=== PATIENT | male | born 1945 | race Caucasian/White ===

== ENCOUNTER 2020-05-08 01:13 | Outpatient (CLI) | payer MEDICARE, OTHER | END 2020-05-08 01:14 | disposition short-term general hospital (02) | LOC: EMS 01:13 | DX: M54.9 Dorsalgia, unspecified (principal); R20.0 Anesthesia of skin | CPT/HCPCS: A0425; A0429 ==

== ENCOUNTER 2021-01-05 14:18 | Outpatient (CLI) | payer MEDICARE, OTHER ==
--- NOTE | 2021-01-05 22:00 | SLEEP CARE CONSULTATION ---
Information from patient questionnaire entered by Ritu Lynn MA. I have reviewed and concur with the information entered by Ritu Lynn MA. This document represents the service I personally performed and the decisions made by me, Jeanne Nava MD, [facility]. History of Present Illness Service Date and Time: 01/05/2021 1418 Previous diagnosis: Severe, Obstructive Sleep Apnea-Hypopnea Syndrome AHI: 58 (in 2014) Reason for follow up: other (9 month f/u ) Equipment type: CPAP Equipment obtained from: [employer] Mask style: Nasal Prior sleep studies: Yes Year and Where: 2014 - in [facility] additional information: Mr. Delgado returned today for follow up of nasal CPAP therapy. He was diagnosed to have severe obstructive sleep apnea-hypopnea syndrome. The patient wears a nasal mask. He reports using the device nightly and all through the night. The compliance report shows usage in 143 nights out of the past 180 nights, averaging 6.5 hours a night. The > 4 hour compliance rate for the past 180 days is 75%. He complained of no particular problem with the device such as soreness on the face, dry nose, epistaxis, nasal congestion or headache. He thinks that the pressure of 11 - 15 cmH2O is comfortable. On the CPAP therapy he notices improvement in his sleep quality, and that he wakes up feeling fresher in the morning and more awake/alert during the day. [place] Sleepiness Scale score is 4. His notices no snore at all. The average residual AHI is 1.3; and average time in large leak per day is 9 minutes. The 90th percentile pressure is 12 cmH2O. The patient is aware of the [employer] recall and is now using his traveling Transcend Z1 device. He would like to buy a new Z2. Sleep Study - Results Prior sleep studies: Yes Year and Where: 2014 - in [place], [place] Subjective Initial [place] Sleepiness Scale score: 10 (in 2018) Current [place] Sleepiness Scale score: 4 (in 2020) Allergies and Home Medications Drug allergies reviewed: Yes Home medication list reviewed: Yes Review of Systems Review of systems same as previous: Yes Physical Exam Vital signs obtained and entered by: PANCHO Vega Blood Pressure: 132/70 (left) Cuff size: wrist Heart Rate: 64 O2 Saturation: 96 (with mask) Height: 6 ft Weight: 286 lb (with coat) Body Mass Index: 38.7 BMI Classification: Obese Impression and Plan IMPRESSION: 1. Obstructive Sleep Apnea-Hypopnea Syndrome, severe, with the patient doing well on nasal CPAP therapy. He has excellent compliance and significant clinical improvement. The current pressure appears effective and comfortable. His mask fits well. Overall, he is very satisfied with treatment and plans to continue with it long-term. I will send a prescription to [facility] for a new traveling CPAP. PLAN: 1. Continue with autoCPAP set at 11 - 15 cmH2O. 2. Prescription made for [employer] Z2 set at the pressure. 3. Try to lose weight. 3. 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
[2021-01-05 22:01] VITALS: BP 132/70
== END 2021-01-05 14:19 | disposition home or self-care (01) ==
LOC: SC 14:18
PROVIDERS: ATTEND Internal Medicine Pulmonary Disease
DX: G47.33 Obstructive sleep apnea (adult) (pediatric) (principal); E66.9 Obesity, unspecified; Z68.38 Body mass index [BMI] 38.0-38.9, adult
CPT/HCPCS: 99212; G0463

== ENCOUNTER 2022-01-09 10:15 | Outpatient (CLI) | payer MEDICARE, OTHER | END 2022-01-09 10:16 | disposition home or self-care (01) | LOC: LAB.N 10:15 | PROVIDERS: ATTEND Internal Medicine Cardiovascular Disease | DX: Z01.812 Encounter for preprocedural laboratory examination (principal); I48.3 Typical atrial flutter; Z20.822 Contact with and (suspected) exposure to COVID-19 ==

== ENCOUNTER 2022-01-18 10:00 | Outpatient (CLI) | payer MEDICARE, OTHER ==
--- NOTE | 2022-01-18 19:00 | SLEEP CARE CONSULTATION ---
Information from patient questionnaire entered by Tete Meek. I have reviewed and concur with the information entered by Tete Meek. This document represents the service I personally performed and the decisions made by me, Jeanne Nava MD, [facility]. History of Present Illness Service Date and Time: 01/18/2022 1000 Previous diagnosis: Severe, Obstructive Sleep Apnea-Hypopnea Syndrome AHI: 58 (in 2014) Reason for follow up: annual (LAST SEEN ) Equipment type: CPAP (DREAMSTATION) Equipment obtained from: [employer] Mask style: Nasal Prior sleep studies: Yes Year and Where: 2014 - in [facility] additional information: Mr. Delgado returned today for an annual follow up of nasal CPAP therapy. He was diagnosed to have severe obstructive sleep apnea-hypopnea syndrome. The patient wears a nasal mask. He reports using the device nightly and all through the night. The compliance report shows usage in 24 nights out of the past 30 nights, averaging 7.5 hours a night. For unclear reason, the device did not register any usage prior to 12/17/21. He complained of no particular problem with the device such as soreness on the face, dry nose, epistaxis, nasal congestion or headache. He thinks that the pressure of 11 - 15 cmH2O is comfortable. On the CPAP therapy he notices improvement in his sleep quality, and that he wakes up feeling fresher in the morning and more awake/alert during the day. [place] Sleepiness Scale score is 9. His notices no snore at all. The average residual AHI is 0.9; and average time in large leak per day is 5.7 minutes. The 90th percentile pressure is 11.5 cmH2O. The patient is aware of the [employer] recall and is now using his traveling Transcend Z2 device. He has not received a replacement machine from [employer] yet. Sleep Study - Results Prior sleep studies: Yes Year and Where: 2014 - in [place], [place] Subjective Initial [place] Sleepiness Scale score: 10 (in 2018) Current [place] Sleepiness Scale score: 9 (01/18/22) Allergies and Home Medications Drug allergies reviewed: Yes Home medication list reviewed: Yes Review of Systems Review of systems same as previous: Yes Physical Exam Vital signs obtained and entered by: TETE Johnson MA Blood Pressure: 110/60 (LEFT ARM) Cuff size: long Heart Rate: 84 O2 Saturation: 98 Height: 6 ft Weight: 295 lb 9.6 oz Body Mass Index: 40.1 BMI Classification: Morbidly Obese Impression and Plan IMPRESSION: 1. Obstructive Sleep Apnea-Hypopnea Syndrome, severe, with the patient doing well on nasal CPAP therapy. He has excellent compliance and significant clinical improvement. The current pressure appears effective and comfortable. His mask fits well. Overall, he is very satisfied with treatment and plans to continue with it long-term. 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 PLAN: 1. Continue with autoCPAP set at 11 - 15 cmH2O. 2. Try to lose weight. 3. Return for follow up in a year or earlier if there is any problem. Counseling Topics: Weight control Follow up with Sleep Care in: 1 year Visit Type: In Office Time Spent with Patient (minutes): 15 Provider Statement: I spent 100% of the Face to Face Visit with the patient with greater than 50% spent counseling the patient and coordination of care.
[2022-01-18 19:01] VITALS: BP 110/60
== END 2022-01-18 10:01 | disposition home or self-care (01) ==
LOC: SC 10:00
PROVIDERS: ATTEND Internal Medicine Pulmonary Disease
DX: G47.33 Obstructive sleep apnea (adult) (pediatric) (principal); E66.01 Morbid (severe) obesity due to excess calories; Z68.41 Body mass index [BMI] 40.0-44.9, adult
CPT/HCPCS: 99212; G0463

== ENCOUNTER 2023-05-18 08:27 | Outpatient (CLI) | payer MEDICARE, OTHER ==
--- NOTE | 2023-05-18 08:54 | Sleep Patient Instructions ---
Sleep Center Visit Summary - Patient Visit Information Reason for Visit: Annual Follow up - Patient Instructions Additional Instructions: You will be completing a sleep study, either an in-lab polysomnography (PSG) or home sleep study (HST). You will follow-up in the sleep care office after the sleep study is completed to hear the results and talk about therapy, if needed. You will be called by our office staff to schedule this appointment, but you may contact us with any questions. - Clinic Information Contact: [facility] [address] [place] [address] [email or web address] T: [phone]
[2023-05-18 08:59] VITALS: BP 133/50; O2SAT 98
--- NOTE | 2023-05-18 08:59 | SLEEP CARE CONSULTATION ---
Information from patient questionnaire entered by Tete Meek. I have reviewed and concur with the information entered by Tete Meek. This document represents the service I personally performed and the decisions made by me, Johnna Ordaz ARNP. History of Present Illness Service Date and Time: 05/18/2023826 Previous diagnosis: Severe, Obstructive Sleep Apnea-Hypopnea Syndrome AHI: 58 (in 2014) Reason for follow up: annual (LAST SEEN 01/2022) Equipment type: CPAP (DREAMSTATION, recertified; NEED MACHINE) Equipment obtained from: [employer] Mask style: Nasal Prior sleep studies: Yes Year and Where: 2014 - in [place], [place] HPI additional information: LANNY DALE was diagnosed to have severe, AHI 58, obstructive sleep apnea-hypopnea syndrome and returned today for CPAP therapy annual follow-up. Sleep Study - Results Prior sleep studies: Yes Year and Where: 2014 - in [place], [place] CPAP Compliance Data - Data Reviewed with Patient Compliance rate %: 0 (no data in last year) Current pressure setting (cmH2O): 11-15 Compliance data discussion: He says he has not been using his CPAP (re-certified Dreamstation) because he had colon cancer surgery and lost about 50 pounds. He stopped snoring, too. He has not used the CPAP for a year. He also has a travel CPAP. He has not been using it either. Subjective Missed days of use due to: reports: other (not using because he lost weight and stopped snoring) Patient concerns: denies: aerophagia, mask discomfort, air blowing in eyes, mask leak noise, condensation in mask/hose, nasal congestion, dry mouth, nose, throat, epistaxis Current pressure setting perceived as: comfortable On therapy, patient: reports: sleeping better, awakening more refreshed, being more awake and alert during the day, more rested overall. denies: drowsiness while driving Initial [place] Sleepiness Scale score: 10 (in 2019) Current [place] Sleepiness Scale score: 2 (05/18/23) Allergies and Home Medications Known drug allergies: No Drug allergies reviewed: Yes Home medication list reviewed: Yes (no changes) Review of Systems Review of systems same as previous: No (LOST 50+LBS) Physical Exam Vital signs obtained and entered by: TETE Johnson MA Blood Pressure: 133/50 (LEFT ARM) Cuff size: regular Heart Rate: 43 O2 Saturation: 98 Height: 6 ft Weight: 249 lb 12.8 oz Weight change since last visit: 46 lb loss Body Mass Index: 33.8 BMI Classification: Obese Impression and Plan 1. Obstructive Sleep Apnea-Hypopnea Syndrome, severe, with poor treatment compliance and unknown apnea control. He has not used his CPAP in a year because he lost about 50 pounds and stopped snoring. He says he sleeps well and feels rested without using the CPAP. I recommend proceeding to polysomnography to confirm the diagnosis and to assess severity. I obtained agreement to proceed. Patient's apnea severity and rationale for treatment to reduce apnea, improve sleep quality and reduce cardiovascular and cerebrovascular events was reviewed. I also reviewed the benefit of consistent device use of CPAP for hypertension, cardiac disease (CHD). 2. Obesity, unspecified. Currently patients BMI is 33.8. He has lost about 50 pounds since last year. Obesity increases the risk of apnea, CPAP pressure requirements and overall health risks especially cardiovascular and diabetes. Thus patient is advised to continue to try to lose weight. * Schedule polysomnography to re-verify diagnosis and severity. * Avoid long distance driving or driving when feeling sleepy. * Avoid alcohol, sedative and muscle relaxant around bedtime. * Attempt to lose weight. * Review instructions provided by trained office staff on how to prepare for the sleep study. * Return for follow-up after sleep study completed. Continue with device pressure at (cmH2O): 11-15 Counseling Topics: Weight loss health impact Follow up with Sleep Care in: other (for sleep study results review) Visit Type: In Office Time Spent with Patient (minutes): 20 Provider Statement: I spent 100% of the Face to Face Visit with the patient with greater than 50% spent counseling the patient and coordination of care.
== END 2023-05-18 08:28 | disposition home or self-care (01) ==
LOC: SC 08:27
PROVIDERS: ATTEND Nurse Practitioner Family
DX: G47.33 Obstructive sleep apnea (adult) (pediatric) (principal); E66.9 Obesity, unspecified; Z68.33 Body mass index [BMI] 33.0-33.9, adult
CPT/HCPCS: 99213; G0463; 99212

== ENCOUNTER 2023-06-07 19:09 | Outpatient (CLI) | payer MEDICARE, OTHER | END 2023-06-07 19:10 | disposition home or self-care (01) | LOC: SC 19:09 | PROVIDERS: ATTEND Nurse Practitioner Family | DX: G47.33 Obstructive sleep apnea (adult) (pediatric) (principal); G47.61 Periodic limb movement disorder | CPT/HCPCS: 95810 ==

== ENCOUNTER 2023-07-01 10:51 | Outpatient (CLI) | payer MEDICARE, OTHER ==
--- NOTE | 2023-07-01 11:23 | Sleep Patient Instructions ---
Sleep Center Visit Summary - Patient Visit Information Reason for Visit: Sleep study follow-up - Patient Instructions Additional Instructions: You were here for follow up of verifying sleep study which showed you have moderate obstructive sleep apnea and should continue with CPAP therapy. You will be continued on CPAP therapy with pressure at 11-15 cmH2O. Please let us know if the pressure change is uncomfortable and we can make adjustments of the pressure. You should follow up with sleep care in 1-2 months. You may contact us sooner for any questions or concerns. - Clinic Information Contact: [facility] [address] [place] [id number] [email or web address] T: [phone]
--- NOTE | 2023-07-01 11:29 | SLEEP CARE CONSULTATION ---
Information from patient questionnaire entered by Darcy Meek. I have reviewed and concur with the information entered by Darcy Meek. This document represents the service I personally performed and the decisions made by , Johnna Ordaz ARNP. History of Present Illness Service Date and Time: 07/01/2023 1051 Initial [place] Sleepiness Scale score: 10 (in 2019) Current [place] Sleepiness Scale score: 2 Additional HPI information: LANNY DALE returns for follow up and results of the recently performed polysomnography. The sleep study showed moderate obstructive sleep apnea with an average AHI of 23.5 and lenard oxygen saturation of 83%. He had severe PLMs not contributing to sleep fragmentation. I explained the pathophysiology behind obstructive sleep apnea. We then spent quite a bit of time discussing different treatment options. For mild obstructive sleep apnea, surgery and oral appliance are alternatives to nasal CPAP therapy but in moderate or severe cases, nasal CPAP is the most effective and reliable treatment. I reviewed the impact of weight changes on sleep apnea and strongly recommended losing weight. After some discussion, the patient will continue with the nasal CPAP therapy set at 11-15 cmH20. Patient does not drink alcohol. Patient was cautioned about risks of drowsy driving until sleepiness symptoms resolve. Patient denies drowsy driving. Sleep Study - Results Type of Sleep Study: Polysomnography (COMPLETED 06/07/23) Prior sleep studies: Yes Year and Where: 2014 - in [place], [place] Polysomnography/Home Sleep Study results: IMPRESSION: The quality of the study is good. The patient had minimally reduced sleep efficiency. The sleep architecture was abnormal for sleep fragmentation and lack of slow wave sleep (N3). Respiratory monitoring showed moderate obstructive sleep apnea-hypopnea (AHI = 23.5) associated with frequent arousals, oxyhemoglobin desaturation and mild hypoxia ([place] oxygen saturation of 83%). The respiratory events occurred independently of sleep stage and body position (supine AHI = 18.5; non-supine = 29.91). Snore was moderate to loud in intensity. There was severe periodic leg movement of sleep not contributing to the sleep fragmentation. Cardiac rhythm was normal sinus rhythm without significant arrhythmia. No abnormal behavior (parasomnia) observed during the night. Allergies and Home Medications Known drug allergies: No Drug allergies reviewed: Yes Home medication list reviewed: Yes (no changes) Allergy and home medication list: Allergies No Known Drug Allergies Allergy (Verified 06/29/23 11:12) Review of Systems Review of systems same as previous: Yes (no changes) Physical Exam Vital signs obtained and entered by: JOHNNA CHAKRABORTY Blood Pressure: 90/48 Cuff size: wrist (right) Heart Rate: 54 O2 Saturation: 97 Height: 6 ft Weight: 246 lb 9.6 oz Weight change since last visit: 3 lb loss Body Mass Index: 33.4 BMI Classification: Obese Impression and Plan 1. Obstructive Sleep Apnea-Hypopnea Syndrome, moderate, with lowest oxygen saturation of 83%. His sleep apnea has improved with the weight loss but he still had moderate obstructive sleep apnea. Positive pressure therapy could continue to benefit hypertension and cardiac disease (CHD). I advised the patient to continue with CPAP therapy and he agreed to restart using his machine. He says he does have some supplies but has not ordered any for a long time from [employer]. I will update his supply prescription. As mentioned above, the patient will be continued on nasal autoCPAP therapy with pressure set at 11- 15 cmH2O. Compliance guidelines also reviewed. I asked that he followup in 1-2 months. 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 He sees him in the first week of July. 2. Hypoxemia, mild, with a lenard oxygen saturation of 83% and 12.6 minutes spent under 90%. The baseline oxygen saturation was normal with an average oxygen saturation of 92%. 3. Periodic limb movement, severe, that did not fragment patients sleep. 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 Periodic limb movement of sleep (PLMS) is characterized by episodes of repetitive limb movements that occur during sleep and usually involve the lower limbs. The etiology is unknown. Sleep hygiene methods can also improve sleep as well as lifestyle changes such as regular exercise. Patient was advised that no treatment is needed at this time. If symptoms increase, then further evaluation is indicated. 4. Obesity, unspecified. Currently patients BMI is 33.4. He has lost weight. Obesity increases the risk of apnea, CPAP pressure requirements and overall health risks especially cardiovascular and diabetes. Thus patient is advised to continue to try to lose weight. * Continue auto CPAP pressure at 11-15 cmH2O * Notify me if snoring with mask or feeling that the pressure is too much or too little * Attempt to lose weight * Call this office if any problems using CPAP * Return for follow up in 1-2 months, or sooner if concerns arise Counseling Topics: Weight loss health impact Prescriptions: Device supplies Follow up with Sleep Care in: 1-2 months Visit Type: In Office Time Spent with Patient (minutes): 22 Provider Statement: I spent 100% of the Face to Face Visit with the patient with greater than 50% spent counseling the patient and coordination of care.
[2023-07-01 11:33] VITALS: BP 90/48; O2SAT 97
== END 2023-07-01 10:52 | disposition home or self-care (01) ==
LOC: SC 10:51
PROVIDERS: ATTEND Nurse Practitioner Family
DX: G47.33 Obstructive sleep apnea (adult) (pediatric) (principal); R09.02 Hypoxemia; G47.61 Periodic limb movement disorder; E66.9 Obesity, unspecified; Z68.33 Body mass index [BMI] 33.0-33.9, adult
CPT/HCPCS: 99213; G0463; 99212

== ENCOUNTER 2023-08-24 09:13 | Outpatient (CLI) | payer MEDICARE, OTHER ==
--- NOTE | 2023-08-24 09:49 | Sleep Patient Instructions ---
Sleep Center Visit Summary - Patient Visit Information Reason for Visit: First compliance with CPAP therapy - Patient Instructions Additional Instructions: You were here for follow up of CPAP therapy. You will be continued on CPAP therapy with pressure at 11-15 cmH2O. You should follow up with sleep care in 1-2 months. You may contact us sooner for any questions or concerns. - Clinic Information Contact: [facility] [address] [place] [address] [email or web address] T: [phone]
--- NOTE | 2023-08-24 09:59 | SLEEP CARE CONSULTATION ---
Information from patient questionnaire entered by Tete Meek. I have reviewed and concur with the information entered by Tete Meek. This document represents the service I personally performed and the decisions made by me, Johnna Ordaz ARNP. History of Present Illness Service Date and Time: 08/24/2023912 Previous diagnosis: Moderate, Obstructive Sleep Apnea-Hypopnea Syndrome AHI: 23.5 (06/07/23)(58 in 2014)) Reason for follow up: first compliance Equipment type: CPAP (Dreamstation 2; NEED MACHINE) Equipment obtained from: [employer] Mask style: Nasal Prior sleep studies: Yes Year and Where: 2014 - in [place], [place] Type of Sleep Study: Polysomnography (COMPLETED 06/07/23) HPI additional information: LANNY DALE was diagnosed to have moderate, AHI 23.5, obstructive sleep apnea-hypopnea syndrome and returned today for CPAP therapy first compliance after restarting CPAP follow-up. Sleep Study - Results Type of Sleep Study: Polysomnography (COMPLETED 06/07/23) Prior sleep studies: Yes Year and Where: 2014 - in [place], [place] CPAP Compliance Data - Data Reviewed with Patient Compliance rate %: 0 Current pressure setting (cmH2O): 11-15 Average residual AHI: 4.3 Subjective Missed days of use due to: reports: other (mouth gets too dry and causes sore throat) Patient concerns: reports: dry mouth, nose, throat (use Biotine). denies: aerophagia, mask discomfort, air blowing in eyes, mask leak noise, condensation in mask/hose, nasal congestion, epistaxis Observed to snore while using device: No Current pressure setting perceived as: comfortable Initial [place] Sleepiness Scale score: 10 (in 2019) Current [place] Sleepiness Scale score: 6 (08/24/23) Allergies and Home Medications Known drug allergies: No Drug allergies reviewed: Yes Home medication list reviewed: Yes (no changes) Allergy and home medication list: Allergies No Known Drug Allergies Allergy (Verified 08/22/23 11:15) Review of Systems Review of systems same as previous: Yes (NO CHANGE) Physical Exam Vital signs obtained and entered by: TETE Johnson MA Blood Pressure: 139/69 (LEFT ARM) Cuff size: long Heart Rate: 52 O2 Saturation: 98 Height: 6 ft Weight: 240 lb Weight change since last visit: 6 lb loss Body Mass Index: 32.5 BMI Classification: Obese Impression and Plan 1. Obstructive Sleep Apnea-Hypopnea Syndrome, moderate, with poor treatment compliance and good apnea control. He has only tried his CPAP twice since the last time we saw him but he has such dry mouth that his throat hurt and he stopped using it. He does not know why he should use it when he does not snore. I discussed with him the results of his last sleep study showing almost 24 respiratory events per hour which causes a lot of stress on his cardiovascular system. He has a history of heart disease and is going to get a Watchman placed for his atrial fibrillation. I stressed that using his CPAP to control his sleep apnea is beneficial for his heart health. He voiced understanding. He has lost weight, he says after having chemotherapy he lost about 55-60 pounds. He does use Biotene but did not use any during this time. I advised him to try to increase the humidity on his machine to reduce oral dryness. He is willing to try this to see if it will improve it overall. If he still does not feel he can continue to use the CPAP then he may change to an oral appliance for a rescue therapy for his sleep apnea. He will look into see if his insurance will cover the oral appliance. We will reassess in 1-2 months. Patient's apnea severity and rationale for treatment to reduce apnea, improve sleep quality and reduce cardiovascular and cerebrovascular events was reviewed. I also reviewed the benefit of consistent device use of CPAP for hypertension, cardiac disease (CHD), atrial fibrillation. 2. Obesity, unspecified. Currently patients BMI is 32.5. He has lost weight. Obesity increases the risk of apnea, CPAP pressure requirements and overall health risks especially cardiovascular and diabetes. Thus patient is advised to continue to try to lose weight. * Continue auto CPAP pressure at 11-15 cmH2O * Notify me if snoring with mask or feeling that the pressure is too much or too little * Attempt to lose weight * Call this office if any problems using CPAP * Return for follow up in 1-2 months, or sooner if concerns arise Counseling Topics: Weight loss health impact Follow up with Sleep Care in: 1-2 months Visit Type: In Office Time Spent with Patient (minutes): 23 Provider Statement: I spent 100% of the Face to Face Visit with the patient with greater than 50% spent counseling the patient and coordination of care.
[2023-08-24 10:04] VITALS: BP 139/69; O2SAT 98
== END 2023-08-24 09:14 | disposition home or self-care (01) ==
LOC: SC 09:13
PROVIDERS: ATTEND Nurse Practitioner Family
DX: G47.33 Obstructive sleep apnea (adult) (pediatric) (principal); E66.9 Obesity, unspecified; Z68.32 Body mass index [BMI] 32.0-32.9, adult
CPT/HCPCS: 99213; G0463; 99212